=== PATIENT | male | born 1975 | race Caucasian/White ===

== ENCOUNTER 2019-07-02 17:23 | Emergency (ER) | payer SELFPAY ==
[~2019-07-02] VITALS: Ht 175.3 cm; Wt 95.3 kg
[2019-07-02 19:07] VITALS: BP 129/71
== END 2019-07-02 20:29 | disposition home or self-care (01) ==
LOC: EDBD 17:23 → ER 17:32
DX: S13.4XXA Sprain of ligaments of cervical spine, initial encounter (principal); V89.2XXA Person injured in unspecified motor-vehicle accident, traffic, initial encounter; Y93.I9 Activity, other involving external motion; Y92.410 Unspecified street and highway as the place of occurrence of the external cause; Y99.8 Other external cause status
CPT/HCPCS: 70450; 72125; 72128; 72131